=== PATIENT | female | born 1960 | race Caucasian/White ===

== ENCOUNTER → 2016-08-18 | Day surgery (SDC) | payer OTHER ==
[~2016-08-18] MED LIST: HYZAAR 100-251 EACH PO; LIPITOR TAB 1010 MG PO
== END | disposition home or self-care (01) ==
LOC: OR 06:56
PROVIDERS: Surgery
PROC: 0DB48ZZ Excision of Esophagogastric Junction, Via Natural or Artificial Opening Endoscopic (ICD-10-PCS; 2016-08-18)
PROC: 0DB68ZX Excision of Stomach, Via Natural or Artificial Opening Endoscopic, Diagnostic (ICD-10-PCS; principal; 2016-08-18 08:00)
DX: K29.70 Gastritis, unspecified, without bleeding (principal); I10 Essential (primary) hypertension; E78.00 Pure hypercholesterolemia, unspecified; Z90.49 Acquired absence of other specified parts of digestive tract; Z79.899 Other long term (current) drug therapy; Z86.718 Personal history of other venous thrombosis and embolism; Z82.61 Family history of arthritis; Z82.49 Family history of ischemic heart disease and other diseases of the circulatory system
CPT/HCPCS: J7120

== ENCOUNTER → 2016-10-06 | Outpatient (CLI) | payer OTHER | LOC: HEART CORB 08:18 | DX: R07.2 Precordial pain (principal); I10 Essential (primary) hypertension | CPT/HCPCS: 78452; 93306; A9502; J2785 ==

== ENCOUNTER → 2016-10-27 | Outpatient (CLI) | payer OTHER | LOC: MAMO 15:20 | DX: Z12.31 Encounter for screening mammogram for malignant neoplasm of breast (principal) | CPT/HCPCS: G0202 ==

== ENCOUNTER → 2016-11-23 | Outpatient (CLI) | payer OTHER | LOC: US 15:21 | DX: R92.8 Other abnormal and inconclusive findings on diagnostic imaging of breast (principal) | CPT/HCPCS: 76641-LT; G0206 ==